=== PATIENT | male | born 1955 | race Caucasian/White ===

== ENCOUNTER 2016-06-30 21:58 | Inpatient (IN) | payer MEDICARE, OTHER ==
[~2016-06-30] VITALS: Ht 172.7 cm; Wt 88.0 kg
[2016-06-30] MEDS ORDERED: ZOLPIDEM TARTRATE 10 MG TABLET PO PRN (22:45)
[2016-06-30] MEDS ORDERED: HALOPERIDOL 5 MG TABLET PO PRN (22:45)
[2016-06-30] MEDS ORDERED: LORazepam 2 MG TABLET PO PRN (22:45)
[2016-06-30 23:10] VITALS: BP 150/85
[2016-06-30] MEDS ORDERED: PNEUMOCOCCAL VACCINE POLYVALENT 0.5 ML VIAL [PPSV23] IM ONE (23:15)
[2016-06-30] MEDS ORDERED: INFLUENZA VIRUS VACCINE QVS 2016-17 (3YR+)/PF 60 MCG/0.5 ML SYRINGE IM ONE (23:15)
[2016-07-01 06:00] VITALS: BP 123/94
[2016-07-01 06:25] VITALS: BP 123/101
[2016-07-01 06:26] LABS: GLUCOSE,POINT OF CARE 96 MG/DL (70-110)
[2016-07-01 08:21] LABS: BASOPHILS % (AUTO) 0.7 % (0.0-2.0); EOSINOPHILS % (AUTO) 7.6 % (1.0-6.0); HEMATOCRIT 38.2 % (41-53); LYMPHOCYTES % (AUTO) 25.6 % (22.0-44.0); MEAN CORPUSCULAR HEMOGLOBIN 32.1 pg (26.0-34.0); MEAN CORPUSCULAR HGB CONC 34.1 G/dL (31.0-37.0); MEAN CORPUSCULAR VOLUME 94 fL (80-100); MONOCYTES # (AUTO) 0.4 K/uL (0.1-1.0); MONOCYTES % (AUTO) 5.5 % (2.0-9.0); NEUTROPHILS # (AUTO) 4.7 K/uL (1.8-7.7); NEUTROPHILS % (AUTO) 60.6 % (40.0-70.0); PLATELET COUNT (AUTO) 319 K/uL (150-450); RED BLOOD CELL COUNT(AUTO) 4.05 MIL/uL (4.50-5.90); WHITE BLOOD COUNT (AUTO) 7.8 K/uL (4.5-11.0)
[2016-07-01 08:35] LABS: HEMOGLOBIN A1C 6.3 % (4.5-6.2)
[2016-07-01 08:50] VITALS: BP 142/91
[2016-07-01 08:51] LABS: ALANINE AMINOTRANSFERASE 20 U/L (12-78); ALBUMIN 3.4 g/dL (3.4-5.0); ANION GAP 6 mmol/L (8-16); ASPARTATE AMINOTRANSFERASE 14 U/L (15-37); BILIRUBIN,TOTAL 0.4 mg/dL (0.1-1.0); CALCIUM, TOTAL 8.8 mg/dL (8.8-10.5); CARBON DIOXIDE 29 mmol/L (22-29); CHLORIDE 104 mmol/L (98-107); CHOL/HDL RATIO 4.4 (4.2-7.3); CREATININE 0.68 mg/dL (0.60-1.30); GLOMERULAR FILTR. RATE CALC > 60 mL/min (>60); POTASSIUM 4.1 mmol/L (3.5-5.1); SODIUM SERUM 139 mmol/L (136-145); THYROID STIMULATING HORMONE 1.72 uIU/mL (0.36-3.74); TOTAL PROTEIN, SERUM 6.5 g/dL (6.4-8.2); UREA NITROGEN, BLOOD 12 mg/dL (7-18)
[2016-07-01] MEDS ORDERED: BENZOCAINE/MENTHOL LOZENGE MM PRN (09:30)
[2016-07-01] MEDS ORDERED: ONDANSETRON HCL 4 MG TABLET PO PRN (09:30)
[2016-07-01] MEDS ORDERED: IBUPROFEN 600 MG TABLET PO PRN (09:30)
[2016-07-01] MEDS ORDERED: PETROLATUM,WHITE 71 GM JELLY TP PRN (09:30)
[2016-07-01] MEDS ORDERED: ALBUTEROL SULFATE HFA 90 MCG/PUFF 8 GM INHALER IH PRN (09:30)
[2016-07-01] MEDS ORDERED: MAGNESIUM HYDROXIDE SUSPENSION 30 ML UDCUP PO PRN (09:30)
[2016-07-01] MEDS ORDERED: ACETAMINOPHEN 325 MG TABLET PO PRN (09:30)
[2016-07-01] MEDS ORDERED: CloNIDine HCL 0.1 MG TABLET PO PRN (09:30)
[2016-07-01] MEDS ORDERED: DEXTROSE 50%-WATER 25 GM/50 ML SYRINGE IVP PRN (09:30)
[2016-07-01] MEDS ORDERED: BACITRACIN 28.4 GM OINTMENT TP PRN (09:30)
[2016-07-01] MEDS ORDERED: LOPERAMIDE HCL 2 MG CAPSULE PO PRN (09:30)
[2016-07-01] MEDS ORDERED: MAG HYDROX/AL HYDROX/SIMETH ES 30 ML SUSPENSION UDCUP PO PRN (09:30)
[2016-07-01 12:07] LABS: GLUCOSE,POINT OF CARE 126 MG/DL (70-110)
[2016-07-01] MEDS: CITALOPRAM HYDROBROMIDE 20 MG TABLET PO SCH (12:21)
[2016-07-01] MEDS: LISINOPRIL 10 MG TABLET PO SCH (12:29)
[2016-07-01 16:20] LABS: GLUCOSE,POINT OF CARE 150 MG/DL (70-110)
[2016-07-01] MEDS: MetFORMIN HCL 500 MG TABLET PO SCH (16:51)
[2016-07-01] MEDS: INSULIN ASPART 100 UNITS/ML SQ PRN ×2 (16:54→21:40)
[2016-07-01 18:10] VITALS: BP 140/80
[2016-07-01 20:35] LABS: GLUCOSE,POINT OF CARE 160 MG/DL (70-110)
[2016-07-01] MEDS ORDERED: SIMVASTATIN 10 MG TABLET PO SCH (21:00)
[2016-07-02 06:51] LABS: GLUCOSE,POINT OF CARE 124 MG/DL (70-110)
[2016-07-02] MEDS: MetFORMIN HCL 500 MG TABLET PO SCH (06:53)
[2016-07-02] MEDS: CITALOPRAM HYDROBROMIDE 20 MG TABLET PO SCH (08:50)
[2016-07-02] MEDS: LISINOPRIL 10 MG TABLET PO SCH (08:50)
[2016-07-02] MEDS ORDERED: LISINOPRIL 10 MG TABLET PO SCH (09:00)
[2016-07-02 11:05] LABS: GLUCOSE,POINT OF CARE 111 MG/DL (70-110)
[2016-07-02] MEDS ORDERED: CITA20TA9 PO (13:03)
[2016-07-02] MEDS ORDERED: METF500T4 PO (13:04)
[2016-07-02] MEDS ORDERED: DOXA2TAB PO (13:05)
[2016-07-02] MEDS ORDERED: SIMV-259 PO (13:05)
[2016-07-02] MEDS ORDERED: LISI-661 PO (13:06)
[2016-07-02] MEDS ORDERED: DOXAZOSIN MESYLATE 2 MG TABLET PO SCH (21:00)
== END 2016-07-02 13:30 | disposition home or self-care (01) | DRG 885 ==
LOC: EDSTATUS 22:05 → UNDOADMIN 22:38 → B2X 22:38
PROVIDERS: ADMIT Psychiatry & Neurology Psychiatry; ATTEND Psychiatry & Neurology Psychiatry
DX: F25.9 Schizoaffective disorder, unspecified (principal); E11.65 Type 2 diabetes mellitus with hyperglycemia; E78.5 Hyperlipidemia, unspecified; F15.10 Other stimulant abuse, uncomplicated; F32.9 Major depressive disorder, single episode, unspecified; I10 Essential (primary) hypertension; J44.9 Chronic obstructive pulmonary disease, unspecified; K21.9 Gastro-esophageal reflux disease without esophagitis; K59.00 Constipation, unspecified; M19.90 Unspecified osteoarthritis, unspecified site; F17.210 Nicotine dependence, cigarettes, uncomplicated; Z79.899 Other long term (current) drug therapy; Z71.6 Tobacco abuse counseling; Z28.20 Immunization not carried out because of patient decision for unspecified reason
CPT/HCPCS: 82962; 83036; 84439; 84443; 90471